=== PATIENT | female | born 1970 | race Caucasian/White ===

== ENCOUNTER 2020-02-26 12:12 | Emergency (ER) | payer OTHER, SELFPAY ==
[2020-02-26 12:30] VITALS: BP 133/82; PULSE 75; RESP 16; TEMP 37.4; O2SAT 98
--- NOTE | 2020-02-26 12:34 | ED.FEMALEGU ---
HPI - Female Genitourinary General Chief complaint: Urogenital-Female Stated complaint: possible bladder infection Time Seen by Provider: 02/26/20 12:34 Source: patient and RN notes reviewed History of Present Illness HPI Narrative: Patient is a 49-year-old female who presents the urgent care with complaints of possible UTI. Patient has had some dysuria and orange urine for approximately 4 to 5 days. Patient also reports of bilateral flank pain, worse on the right. Patient has been taking Tylenol and ibuprofen [id number] for 2 weeks due to low-grade fevers. Patient states her temperature is gotten as high as 102.5-1 03. Patient states that 2 days after she had a negative COVID test which was ordered by her PCP. Patient never had any upper respiratory symptoms. Patient does have a history of urinary tract infections but denies any history of pyelonephritis. Patient states that her last UTI was May 2018 and she had anaphylaxis to Macrobid at that time. Patient denies of any abdominal pain, nausea, vomiting. Patient is very tearful and was under the inception that her orange urine may be due to hepatitis . Patient denies any risk factors of hepatitis. No other acute complaints. Patient read the plan of care. Related Data Home Medications Medication Instructions Recorded Confirmed alprazolam 0.25 mg tablet 0.25 mg PO TID 08/18/19 cyclobenzaprine 10 mg tablet 10 mg PO TID 08/18/19 dextroamphetamine-amphetamine 30 30 mg PO DAILY 08/18/19 mg tablet estradiol 1 mg tablet 1 mg PO DAILY 08/18/19 irbesartan 150 1 tablet PO DAILY 08/18/19 mg-hydrochlorothiazide 12.5 mg tablet levothyroxine 100 mcg tablet 100 mcg PO DAILY 08/18/19 linaclotide 145 mcg capsule 145 mcg PO DAILY 08/18/19 ondansetron HCl 4 mg tablet 4 mg PO Q8H 08/18/19 zolpidem 10 mg tablet 10 mg PO ONCE 08/18/19 Allergies Allergy/AdvReac Type Severity Reaction Status Date / Time nitrofurantoin Allergy Unknown Anaphylactic Verified 01/05/19 16:30 Shock phenazopyridine Allergy Unknown Anaphylactic Verified 01/05/19 16:30 Shock Sulfa (Sulfonamide Allergy Unknown Contact Verified 01/04/19 11:00 Antibiotics) dermatitis Review of Systems Review of Systems: Narrative: CONSTITUTIONAL:fever, chills, sweats EYES: Denies visual changes, redness, or discharge. ENT: Denies rhinorrhea, congestion, sore throat, or otalgia. CARDIOVASCULAR: Denies chest pain, palpitations, or edema. RESPIRATORY: Denies cough or dyspnea. GASTROINTESTINAL: Denies abdominal pain, nausea, vomiting, or diarrhea. GENITOURINARY: dysuria and dark urine SKIN: Denies rash or itching. MUSCULOSKELETAL: Reports of intermittent body aches with bilateral flank pain, worse on the right NEUROLOGIC: Denies headache, numbness, or weakness. All other systems reviewed are negative, except as documented in HPI. [facility] Past Medical History Medical History (Updated 02/26/20 @ 12:53 by NIALL Doyle) Fever Headache Social History Social History Smoking status: Never smoker Alcohol intake: never Comments At the time of my signature, I reviewed and agree with the nursing past medical, surgical, social, and family history. There is no relevant family history pertinent to the patient complaint. Exam Narrative: Exam Narrative: GENERAL: This is a well-nourished, well-developed patient, patient is tearful HEAD: normocephalic, atraumatic. EYES: PERRL. Sclera clear/white. Vision is grossly intact. EARS: External ears normal NOSE: External nose normal with no obvious nasal discharge, nares without redness, no rhinorrhea. THROAT: Mucous membranes moist NECK: Neck supple CARDIOVASCULAR: Regular rate and rhythm without murmurs, gallops, or rubs. RESPIRATORY: Clear to auscultation. Breath sounds equal bilaterally. No wheezes, rales, or rhonchi. GASTROINTESTINAL: Abdomen soft, upper right quadrant tenderness, nondistended. Bowel sounds are active. S
== END 2020-02-26 13:00 | disposition short-term general hospital (02) ==
PROVIDERS: Emergency Provider Nurse Practitioner Family; PCP Family Medicine
DX: R30.0 Dysuria (principal); R50.9 Fever, unspecified
CPT/HCPCS: 81003; 99202; G0463

== ENCOUNTER 2020-02-26 13:13 | Emergency (ER) | payer OTHER, MEDICAID, SELFPAY ==
--- NOTE | ~2020-02-26 | CT_ITS ---
EXAMINATION: CT abdomen pelvis wo con EXAM DATE: 02/26/2020 17:09 INDICATION: Right flank pain. TECHNIQUE: Spiral CT of the abdomen and pelvis was performed without contrast. Axial, coronal and sag ittal images were reviewed. The dose-length product (DLP) for this examination was 431.78 mGy-cm. T he exposure was tailored according to patient size (auto mA exposure control), and iterative reconstr uction (ASIR) was used as additional dose reduction technique. There is no prior study for compariso n. FINDINGS: There is a 3 mm calyceal stone within each kidney. No ureteral stones or hydronephrosis. T he uterus is not identified and has likely been surgically resected. The bladder is unremarkable. T here is hepatic steatosis without suspicious focal lesion identified. Spleen, adrenal glands, pancrea s are unremarkable. There are cholecystectomy clips. There is no retroperitoneal or pelvic lymphade nopathy. The appendix is normal. The stomach and small bowel are unremarkable. There is expected amount of c olonic stool. No free intraperitoneal gas. Trace pericardial effusion. Left basilar linear atele ctasis. The bones are unremarkable. IMPRESSION: 1. Small nonobstructing stone in each kidney. No acute findings. 2. Hepatic steatosis. Reviewed, dictated and finalized at location A.
--- NOTE | ~2020-02-26 | XR_ITS ---
XR chest 2V DATE: 02/26/2020 14:29 INDICATION: Fever. Bladder infection. TECHNIQUE: PA and lateral views COMPARISON: None FINDINGS: Normal heart size. No hilar or mediastinal enlargement. No pulmonary infiltrate or consolid ation, pleural effusion or pulmonary vascular congestion or pneumothorax. Surgical clips, right upper quadrant, consistent with cholecystectomy. IMPRESSION: No active cardiopulmonary disease Status post cholecystectomy Reviewed, dictated and finalized at location A.
[2020-02-26 13:17] VITALS: BP 155/90; PULSE 75; RESP 16; TEMP 36.4; O2SAT 99
[2020-02-26 14:16] LABS: Basophils Absolute Auto 0.1 K/mm3 (0.0-0.1); Basophils Percent Auto 1.1 % (0.2-1.2); Hematocrit 38.9 % (37.0-47.0); Hemoglobin 13.1 g/dL (12.0-15.0); Immature Granulocyte Absolute 0.02 K/mm3 (0.00-0.031); Immature Granulocyte Percent A 0.4 % (0-0.5); Lymphocytes Absolute Auto 3.04 K/mm3 (0.9-3.2); Lymphocytes Percent Auto 53.9 % (18.3-44.2); Mean Corpuscular HGB Conc 33.7 g/dl (32-36); Mean Corpuscular Hemoglobin 29.9 pg (26-34); Mean Corpuscular Volume 88.8 fl (80-100); Monocytes Absolute Auto 0.4 K/mm3 (0.1-0.6); Monocytes Percent Auto 6.6 % (2.6-8.5); Neutrophils Absolute Auto 2.2 K/mm3 (1.3-6.7); Platelet Count Result 209 k/mm3 (150-375); Red Blood Count 4.38 M/mm3 (4.2-5.4); Red Cell Distribution Width 13.2 % (11.5-14.5); White Blood Count 5.6 K/mm3 (4.5-10.0)
[2020-02-26 14:21] LABS: Add Urine Microscopic? YES; Appearance Urine Cloudy (Clear); Bacteria Urine Trace /hpf; Bilirubin Urine Negative (Negative); Blood Urine 1+ (Negative); Color Urine Amber (Yellow); Glucose Urine UA Negative (Negative); Ketones Urine Negative (Negative); Leukocyte Esterase Ur 3+ LEU/UL (Negative); Mucus Urine Few /lpf; Nitrate Urine Negative (Negative); Protein Urine 1+ mg/dL (Negative); Specific Grav Ur 1.034 (1.001-1.035); Squamous Epithelial Cell Urine Many /hpf (Few); Transitional Epi Cells Urine Rare /hpf (None Seen); WBC Urine 31-50 /hpf
[2020-02-26 14:27] LABS: Alanine Aminotransferase 219 U/L (4-35); Albumin Level 3.8 g/dL (3.5-5.1); Alkaline Phosphatase 229 U/L (38-126); Aspartate Amino Transferase 114 U/L (14-36); Bilirubin,Total 0.7 mg/dL (0.2-1.3); Blood Urea Nitrogen 16 mg/dL (7-17); Calcium 8.5 mg/dL (8.4-10.2); Carbon Dioxide 28 mmol/L (22-30); Chloride 102 mmol/L (98-107); Estimated CRCL calculation 82 ml/min; Estimated Glomerular Filt Rate > 60; Glucose 95 mg/dL (65-105); Potassium 3.2 mmol/L (3.4-5.0); Sodium 137 mmol/L (137-145)
[2020-02-26 15:53] VITALS: BP 143/86; PULSE 74; RESP 14; O2SAT 99
[2020-02-26 16:46] VITALS: BP 144/89; PULSE 72; RESP 20; TEMP 37.6; O2SAT 99
--- NOTE | 2020-02-26 16:57 | ED.GENADULT ---
HPI - General Adult General Chief complaint: Urogenital-Female Stated complaint: bladder infection Time Seen by Provider: 02/26/20 13:45 History of Present Illness HPI narrative: Patient is a 49-year-old female who presents the ER with dark urine. Patient reports that she was sent by urgent care for possible bilirubin in her urine. She reports urine is dark like when she had hepatitis A in the past however she is not jaundiced like she was at that point. She reports she has been having fever for 2 weeks and has not found a reason why she is febrile. Her doctor tested her for COVID which was negative. She reports right-sided flank pain associated with this fever darkened urine. Occasional dysuria but no frequency or urgency. No abdominal pain/nausea/vomiting. Takes Tylenol for fever which will help for short period. Related Data Home Medications Medication Instructions Recorded Confirmed alprazolam 0.25 mg tablet 0.25 mg PO TID 08/18/19 cyclobenzaprine 10 mg tablet 10 mg PO TID 08/18/19 dextroamphetamine-amphetamine 30 30 mg PO DAILY 08/18/19 mg tablet estradiol 1 mg tablet 1 mg PO DAILY 08/18/19 irbesartan 150 1 tablet PO DAILY 08/18/19 mg-hydrochlorothiazide 12.5 mg tablet levothyroxine 100 mcg tablet 100 mcg PO DAILY 08/18/19 linaclotide 145 mcg capsule 145 mcg PO DAILY 08/18/19 ondansetron HCl 4 mg tablet 4 mg PO Q8H 08/18/19 zolpidem 10 mg tablet 10 mg PO ONCE 08/18/19 Allergies Allergy/AdvReac Type Severity Reaction Status Date / Time nitrofurantoin Allergy Unknown Anaphylactic Verified 02/26/20 13:20 Shock phenazopyridine Allergy Unknown Anaphylactic Verified 02/26/20 13:20 Shock Sulfa (Sulfonamide Allergy Unknown Contact Verified 02/26/20 13:20 Antibiotics) dermatitis Review of Systems Review of Systems: All systems reviewed & are unremarkable except as noted in HPI and below Constitutional: Constitutional: Denies chills, Reports fatigue and Reports fever(s) ENT: Denies nasal congestion and Denies sore throat Cardiovascular: Cardiovascular: Denies chest pain Respiratory: Respiratory: Denies cough, Denies dyspnea and Denies wheezing Gastrointestinal: Gastrointestinal: Denies abdominal pain, Denies nausea and Denies vomiting Genitourinary: Genitourinary: Denies hematuria, Denies nocturia, Reports dysuria, Reports flank pain and Denies urinary incontinence PMFSH Past Medical History Medical History (Updated 02/26/20 @ 17:56 by Rome Betancur MD) Attention deficit disorder (ADD) without hyperactivity Chronic anxiety Essential (primary) hypertension Fever Headache Hypothyroidism, unspecified Surgical History Surgical History (Updated 02/26/20 @ 17:20 by Rome Betancur MD) History of cholecystectomy Social History Social History Smoking status: Never smoker Alcohol intake: never Gender identity (if verbalized by the patient): Female Exam Narrative: Exam Narrative: GENERAL: Well-appearing, well-nourished, and in no acute distress. HEAD: Normocephalic, atraumatic. Eyes: Cristin, EOMI, no scleral icterus. ENT: Mucous membranes moist. CHEST: Clear to auscultation. No respiratory distress. HEART: Regular rate and rhythm. Normal peripheral pulses. ABDOMEN: Soft, nontender, nondistended. Right CVA tenderness EXTREMITIES: Normal range of motion. No edema. SKIN: Warm, dry, no rash. No jaundice NEURO: Alert and oriented x3. PSYCH: Normal mood and affect. Course Course Emergency Course: Patient informed of results. Will treat as UTI/pyelonephritis. Discharge with ciprofloxacin. Vital Signs Vital signs: Vital Signs Temperature 97.5 F L 02/26/20 13:17 Pulse Rate 75 02/26/20 13:17 Respiratory Rate 16 02/26/20 13:17 Blood Pressure 155/90 H 02/26/20 13:17 Pulse Oximetry 99 02/26/20 13:17 Temperature 99.6 F 02/26/20 16:46 Pulse Rate 72 02/26/20 16:46 Respiratory Rate 20 02/26/20 16:46 Blood Pressure 144/89 H 02/25
--- NOTE | 2020-02-26 17:04 | PC.NURSE ---
Pt to CT scan via stretcher.
[2020-02-26 17:45] LABS: Monoscreen Negative (Negative)
[2020-02-26 17:46] LABS: Negative Monotest Control Negative (Negative); Positive Monotest Control Positive (Positive)
[2020-02-26 18:22] VITALS: BP 148/86; PULSE 79; RESP 17; O2SAT 97
== END 2020-02-26 18:24 | disposition home or self-care (01) ==
PROVIDERS: Emergency Provider Emergency Medicine; PCP Family Medicine
DX: N12 Tubulo-interstitial nephritis, not specified as acute or chronic (principal); F98.8 Other specified behavioral and emotional disorders with onset usually occurring in childhood and adolescence; I10 Essential (primary) hypertension; E03.9 Hypothyroidism, unspecified; F41.9 Anxiety disorder, unspecified
CPT/HCPCS: 36415; 71046; 74176; 80048; 80076; 81001; 85025; 86308; 87086; 87088; 99284

== ENCOUNTER → 2021-09-18 08:54 | Outpatient (CLI) | payer OTHER, SELFPAY ==
[2021-09-19 13:33] LABS: SARS-CoV-2 RNA PCR Negative
== END ==
PROVIDERS: PCP Family Medicine; Visit Provider Family Medicine
DX: R68.89 Other general symptoms and signs (principal); Z20.822 Contact with and (suspected) exposure to COVID-19
CPT/HCPCS: C9803; U0003; U0005

== ENCOUNTER 2022-03-29 10:51 | Outpatient (CLI) | payer OTHER, SELFPAY ==
--- NOTE | 2022-03-29 | ECG_ITS ---
Measurements Intervals [place] Rate: 59 P: 29 ND: 161 QRS: -6 QRSD: 93 T: 30 QT: 414 QTc: 413 Interpretive Statements SINUS BRADYCARDIA DELAYED PRECORDIAL R/S TRANSITION BASELINE WANDER- I, II, AVR, AVL, AVF BORDERLINE ECG Electronically Signed On 03-29-2022 15:30:55 CDT by Nico Farooq D.O.
--- NOTE | 2022-03-29 11:00 | EST_ITS ---
Patient Info Name: Dipti Arredondo Age: 52 years : 1970 Gender: Female Ht: 64 in Wt: 195 lbs BSA: 2.03 m2 HR: 62 bpm BP: 144 / 77 mmHg Exam Date: 03/29/2022 11:22 AM Exam Location: [facility] Stress Patient Status: Outpatient Admit Date: 03/29/2022 Staff Ordering Physician: Raf Lopez MD Attending Provider: Raf Lopez MD Exercise Technologist: Aniya Seo CT Exercise Physician: Nico Farooq DO Exam Type: CA stress test treadmill Study Info Indications - HTN, WITH DECREASED EXERCISE TOLERANCE An exercise stress test was performed. Summary 1. 1. Negative Randall exercise stress test for ischemic ST changes by ECG criteria. 2. 2. Good functional capacity, achieving 10 METs of workload. 3. 3. Baseline hypertension. 4. 4. Appropriate HR response to exercise. 5. 5. Appropriate HR recovery at 1 minute post exercise. 6. 6. No imaging with stress testing. 7. 7. Patient informed of the above results. Protocol: Randall Rest HR: 62 bpm Peak HR: 143 bpm Rest Sys BP: 144 mmHg Peak Sys BP: 186 mmHg Max Pred HR: 166 bpm % Max Pred HR: 86 % Target HR: 141 bpm Max RPP: 26,598 bpm*mmHg Termination Reason: Reached target heart rate or workload Cardiac Symptoms: Shortness of breath Total Time: 8 min : 2 sec Rest Baldwin BP: 77 mmHg Peak Baldwin BP: 88 mmHg Total METS: 10.1 Resting ECG Sinus rhythm, low voltage in diffuse leads, BRWP. Stress ECG No ST changes. Arrhythmias None. Report Signatures
== END 2022-03-29 10:52 | disposition home or self-care (01) ==
PROVIDERS: PCP Family Medicine; Visit Provider Family Medicine
DX: R68.89 Other general symptoms and signs (principal); I10 Essential (primary) hypertension; R00.1 Bradycardia, unspecified
CPT/HCPCS: 93005; 93017

== ENCOUNTER 2022-08-30 05:09 | Outpatient (CLI) | payer BC, OTHER, SELFPAY ==
--- NOTE | 2022-08-30 14:01 | ECG_ITS ---
Measurements Intervals [place] Rate: 59 P: 6 [place]: 152 QRS: -2 QRSD: 101 T: 46 QT: 411 QTc: 410 Interpretive Statements SINUS BRADYCARDIA OTHERWISE WITHIN NORMAL LIMITS COMPARED TO ECG 03/29/2022 11:34:34 NO SIGNIFICANT CHANGES Electronically Signed On 08-30-2022 17:23:37 PHOTOGRAPHIC DOUBLE by Lacho Berg M.D.
[2022-08-30 14:28] LABS: Basophils Absolute Auto 0.1 K/mm3 (0.0-0.1); Basophils Percent Auto 0.9 % (0.2-1.2); Hematocrit 42.7 % (37.0-47.0); Hemoglobin 14.6 g/dL (12.0-15.0); Immature Granulocyte Absolute 0.01 K/mm3 (0.00-0.031); Immature Granulocyte Percent A 0.1 % (0-0.5); Lymphocytes Percent Auto 47.5 % (18.3-44.2); Mean Corpuscular HGB Conc 34.2 g/dl (32-36); Mean Corpuscular Hemoglobin 30.2 pg (26-34); Mean Corpuscular Volume 88.2 fl (80-100); Mean Platelet Volume 9.6 fl (7.4-10.4); Monocytes Absolute Auto 0.6 K/mm3 (0.1-0.6); Monocytes Percent Auto 7.3 % (2.6-8.5); Neutrophils Absolute Auto 3.8 K/mm3 (1.3-6.7); Neutrophils Percent Auto 44.2 % (45.5-73.1); Platelet Count Result 330 k/mm3 (150-375); Red Blood Count 4.84 M/mm3 (4.2-5.4); Red Cell Distribution Width 12.5 % (11.5-14.5); White Blood Count 8.6 K/mm3 (4.5-10.0)
[2022-08-30 14:45] LABS: Hemoglobin A1C 6.3 % (<5.7)
[2022-08-30 15:15] LABS: Alanine Aminotransferase 32 U/L (6-35); Albumin Level 4.7 g/dL (3.5-5.1); Alkaline Phosphatase 132 U/L (38-126); Anion Gap 6 mmol/L (8-16); Aspartate Amino Transferase 27 U/L (14-36); Bilirubin,Total 0.9 mg/dL (0.2-1.3); Blood Urea Nitrogen 22 mg/dL (7-17); Calcium 9.3 mg/dL (8.4-10.2); Carbon Dioxide 31 mmol/L (22-30); Chloride 103 mmol/L (98-107); Estimated Glomerular Filt Rate > 60; Glucose 107 mg/dL (65-110); Potassium 3.6 mmol/L (3.4-5.0); Sodium 140 mmol/L (137-145)
[2022-08-30 16:06] LABS: Folic Acid 7.9 ng/mL (2.76->20)
== END 2022-08-30 13:58 | disposition home or self-care (01) ==
PROVIDERS: PCP Family Medicine; Visit Provider Nurse Practitioner Family
DX: E03.9 Hypothyroidism, unspecified (principal); I10 Essential (primary) hypertension; R74.8 Abnormal levels of other serum enzymes; E53.8 Deficiency of other specified B group vitamins; E11.9 Type 2 diabetes mellitus without complications; Z01.818 Encounter for other preprocedural examination
CPT/HCPCS: 36415; 80053; 82607; 82746; 83036; 84439; 84443; 85025; 93005